=== PATIENT | male | born 1985 | race Caucasian/White ===

== ENCOUNTER → 2017-09-04 | Outpatient (CLI) | payer BC | LOC: SUN.DIA 05-31 12:32 | DX: E10.9 Type 1 diabetes mellitus without complications (principal); Z79.4 Long term (current) use of insulin; Z96.41 Presence of insulin pump (external) (internal); Z68.30 Body mass index [BMI] 30.0-30.9, adult; Z71.3 Dietary counseling and surveillance | CPT/HCPCS: G0108 ==

== ENCOUNTER → 2017-10-02 | Outpatient (CLI) | payer BC | LOC: SUN.DIA 08:45 | DX: E10.9 Type 1 diabetes mellitus without complications (principal); Z79.4 Long term (current) use of insulin; Z96.41 Presence of insulin pump (external) (internal); Z68.31 Body mass index [BMI] 31.0-31.9, adult; Z71.3 Dietary counseling and surveillance | CPT/HCPCS: G0108 ==

== ENCOUNTER 2020-06-01 21:02 | Emergency (ER) | payer BC ==
[~2020-06-01] VITALS: Ht 193 cm; Wt 122.7 kg
[2020-06-01 21:05] VITALS: BP 143/89; TEMP 97.6
[2020-06-01] MEDS ORDERED: INSULIN HUMA100 U/ML SQ (21:15)
[2020-06-01 22:24] VITALS: PULSE 96
== END 2020-06-01 22:26 | disposition home or self-care (01) ==
LOC: COL.ER 21:02
DX: S92.491A Other fracture of right great toe, initial encounter for closed fracture (principal); W22.8XXA Striking against or struck by other objects, initial encounter; Y92.009 Unspecified place in unspecified non-institutional (private) residence as the place of occurrence of the external cause